=== PATIENT | male | born 1950 | race Caucasian/White ===

== ENCOUNTER → 2021-05-09 | Outpatient (CLI) | payer OTHER ==
[2021-05-09 11:04] LABS: BUN/CREATININE RATIO 13 (0-10)
== END ==
LOC: LAB 09:31
PROVIDERS: Radiology Diagnostic Radiology
DX: E11.9 Type 2 diabetes mellitus without complications (principal); Z85.46 Personal history of malignant neoplasm of prostate
CPT/HCPCS: 36415; 80053